=== PATIENT | female | born 1965 | race Caucasian/White ===

== ENCOUNTER → 2016-11-02 | Outpatient (CLI) | payer BC ==
[2016-11-02 09:03] LABS: EKG EKG PERFORMED
[2016-11-02 09:16] LABS: Basophils % (A) 1 %; CH 30.9; CHCM 34.2; Eosinophils # (A) 0.2 k/uL (0-0.7); Eosinophils % (A) 3 %; HCT 43.8 % (34.0-46.0); HDW 2.42; HGB 14.4 gm/dL (11.4-16.0); Luc # (Auto) 0.14; Luc % (Auto) 2; Lymphocytes # (A) 2.4 k/uL (1.0-4.8); Lymphocytes % (A) 37 %; MCH 29.9 pg (25.0-35.0); MCV 90.8 fL (80.0-100.0); Mean Platelet Volume 8.5; Monocytes # (A) 0.3 k/uL (0-1.0); Monocytes % (A) 5 %; Neutrophils # (A) 3.3 k/uL (1.3-7.7); Neutrophils % (A) 52 %; RBC 4.82 m/uL (3.80-5.40); WBC 6.4 k/uL (3.8-10.6); WBC (Perox) 6.27
[2016-11-02 09:20] LABS: Partial Thromboplastin Time 23.1 sec (22.0-30.0); Prothrombin Time 9.9 sec (9.0-12.0)
[2016-11-02 09:21] LABS: Appearance,Urine Cloudy (Clear); Bacteria,Urine Rare /hpf; Bilirubin,Urine Negative (Negative); Calcium Oxalate Crystals,Urine Moderate /hpf; Glucose,Urine (UA) Negative (Negative); Ketones,Urine Negative (Negative); Leukocyte Esterase,Urine Negative (Negative); Mucus,Urine Moderate /hpf; Nitrite,Urine Negative (Negative); PH, Urine 5.5 (5.0-8.0); Particle Count 9966; Protein,Urine Trace (Negative); RBC,Urine 3 /hpf (0-5); Specific Gravity,Urine 1.025 (1.001-1.035); Squamous Epithelial Cell,Urine 5 /hpf (0-4); UA Billing (MACRO vs. MICRO) MICRO; WBC,Urine 1 /hpf (0-5)
--- NOTE | 2016-11-02 09:21 | XR ---
EXAMINATION TYPE: XR chest 2V DATE OF EXAM: 11/02/2016 COMPARISON: NONE HISTORY: Back surgery. Pain. TECHNIQUE: Frontal and lateral views of the chest are obtained. FINDINGS: There is no focal air space opacity, pleural effusion, or pneumothorax seen. The cardiac silhouette size is within normal limits. The osseous structures are intact. IMPRESSION: No acute cardiopulmonary process.
[2016-11-02 09:50] LABS: Anion Gap 9 mmol/L; Blood Urea Nitrogen 13 mg/dL (7-17); Calcium 9.7 mg/dL (8.4-10.2); Carbon Dioxide 28 mmol/L (22-30); Chloride 105 mmol/L (98-107); Glucose 85 mg/dL (74-99); Non-African American GFR(MDRD) >60 (>60 ml/min/1.73 sqM); Potassium 4.2 mmol/L (3.5-5.1); Sodium 142 mmol/L (137-145)
== END | disposition home or self-care (01) ==
LOC: LABWHC1 08:34
PROVIDERS: ATTEND Orthopaedic Surgery Orthopaedic Surgery of the Spine
DX: Z01.818 Encounter for other preprocedural examination (principal)
CPT/HCPCS: 36415; 71020; 80048; 81001; 85025; 85610; 85730; 93005

== ENCOUNTER → 2016-11-10 | Outpatient (CLI) | payer BC ==
[2016-11-10 11:02] LABS: Appearance,Urine Cloudy (Clear); Bilirubin,Urine Negative (Negative); Glucose,Urine (UA) Negative (Negative); Ketones,Urine Negative (Negative); Leukocyte Esterase,Urine Negative (Negative); Mucus,Urine Rare /hpf; Nitrite,Urine Negative (Negative); PH, Urine 5.5 (5.0-8.0); Particle Count 1144; Protein,Urine Negative (Negative); Specific Gravity,Urine 1.004 (1.001-1.035); Squamous Epithelial Cell,Urine 1 /hpf (0-4); UA Billing (MACRO vs. MICRO) MICRO; Urobilinogen,Urine <2.0 mg/dL (<2.0); WBC,Urine <1 /hpf (0-5)
== END | disposition home or self-care (01) ==
LOC: LABWHC1 08:03
PROVIDERS: ATTEND Orthopaedic Surgery Orthopaedic Surgery of the Spine
DX: N39.0 Urinary tract infection, site not specified (principal)
CPT/HCPCS: 81001

== ENCOUNTER 2017-09-24 09:03 | Day surgery (SDC) | payer MEDICAID ==
[2017-08-27 10:33] VITALS: BMI 22.3
[~2017-09-24 09:03] MED LIST: LACTATED RINGERS 1,000 ML IV SCH
[2017-09-24 09:29] VITALS: TEMP 98
[2017-09-24] MEDS ORDERED: LIDOCAINE 1% 20 ML VIAL (10MG/ML) FOR IV START INTRADERMA ONE (09:29)
[2017-09-24] MEDS ORDERED: LIDOCAINE 1% INJ 10MG/ML (20 ML MDV) ONE (09:41)
[2017-09-24] MEDS ORDERED: PROPOFOL 10 MG/ML 20 ML VIAL IV ONE (09:41)
--- NOTE | 2017-09-24 10:03 | P.PCN ---
Date of Procedure: 09/24/17 Procedure(s) Performed: BRIEF HISTORY: Patient is a 52-year-old, pleasant, white female, scheduled for an upper endoscopy as a part of evaluation of long-standing history of GERD and chronic cough for the last several years duration. Her symptoms have been progressively getting worse for the last 9 months. She has been on Protonix 40 mg daily to help and recently was increased to 40 mg twice daily and still remains symptomatic. She is hence scheduled for an upper endoscopy to evaluate further. PROCEDURE PERFORMED: Esophagogastroduodenoscopy with biopsy PREOPERATIVE DIAGNOSIS: GERD and chronic cough of several years duration IV sedation per anesthesia. PROCEDURE: After informed consent was obtained, the patient was brought into the endoscopy unit. IV sedation was administered by Anesthesia under continuous monitoring. Initially the Olympus GIF-140 video endoscope was inserted into the mouth. Esophagus intubated without any difficulty. It was gradually advanced into the stomach and duodenum and carefully examined. The bulb and the second part of the duodenum appeared normal. The scope at this time was withdrawn to the stomach, adequately insufflated with air, and upon careful examination, mucosa of the antrum, had mild patchy areas of erythema and biopsies were done from this area. The body, cardia and the fundus appeared normal. The scope was then withdrawn into the esophagus. months. Head hernia notedThe GE junction was located at 39 cm from the incisors. The esophagus appeared normal. biopsies were done from the distal esophagus.There were no erosions or ulcerations seen and the patient tolerated the procedure well. IMPRESSION: 1. Small sliding-type hiatal hernia but no evidence of esophagitis or peptic ulcer disease 2. Mild antral gastritis. RECOMMENDATIONS: The findings of this examination were discussed with the patient as well as her family. She was advised to continue 40 mg of Protonix twice daily and follow antireflux measures. In the meantime we'll await the biopsy results and she'll be seen in the office in 6 weeks.
[2017-09-24 10:21] VITALS: BP 113/78; PULSE 78; RESP 18
== END 2017-09-24 10:42 | disposition home or self-care (01) ==
LOC: ORWHC2ENDO 09:03
PROVIDERS: ATTEND Internal Medicine Gastroenterology
DX: K29.50 Unspecified chronic gastritis without bleeding (principal); K21.0 Gastro-esophageal reflux disease with esophagitis; K44.9 Diaphragmatic hernia without obstruction or gangrene; Z88.2 Allergy status to sulfonamides; Z79.82 Long term (current) use of aspirin; Z79.899 Other long term (current) drug therapy
CPT/HCPCS: 88305; 43239; J2001; J2704

== ENCOUNTER → 2018-01-11 | Outpatient (CLI) | payer MEDICAID ==
--- NOTE | 2018-01-11 09:45 | CT ---
EXAMINATION TYPE: CT chest w con DATE OF EXAM: 01/11/2018 COMPARISON: Chest x-ray November 02, 2016 HISTORY: Cough CT DLP: 147.80 mGycm. Automated Exposure Control for Dose Reduction was Utilized. TECHNIQUE: CT scan of the thorax is performed following with IV Contrast, patient injected with 100 ml mL of Isovue 300. FINDINGS: LUNGS: Some respiratory motion artifact degradation is seen limiting evaluation for subcentimeter nod ularity especially in the bases. No obvious parenchymal nodules or masses are identified. No suspicio us consolidation or focal groundglass opacity is seen. No pleural effusion or pneumothorax is noted. Tracheobronchial tree is patent. MEDIASTINUM: There are no greater than 1 cm hilar or mediastinal lymph nodes. No cardiomegaly or pe ricardial effusion is seen. There is 4 vessel origin from aortic arch which is normal variant. OTHER: No additional significant abnormality is seen. IMPRESSION: No significant acute or chronic pulmonary process.
== END | disposition home or self-care (01) ==
LOC: RADCTMAIN 08:55
PROVIDERS: ATTEND Internal Medicine Critical Care Medicine
DX: R05 Cough (principal); Z88.2 Allergy status to sulfonamides
CPT/HCPCS: 71260; Q9967

== ENCOUNTER → 2018-04-13 | Outpatient (CLI) | payer MEDICAID ==
--- NOTE | 2018-04-14 11:03 | MM ---
Reason for exam: screening (asymptomatic). Last mammogram was performed 2 years and 6 months ago. History: Patient had first child at age 37. Family history of breast cancer in aunt at age 60. Physical Findings: A clinical breast exam by your physician is recommended on an annual basis and results should be correlated with mammographic findings. MG Screening Mammo w CAD Bilateral CC and MLO view(s) were taken. XCCL view(s) were taken of the right breast. Prior study comparison: September 30, 2015, bilateral MG screening mammo w CAD. November 27, 2013, bilateral MG screening mammo w CAD. The breast tissue is heterogeneously dense. This may lower the sensitivity of mammography. No significant changes when compared with prior studies. ASSESSMENT: Benign, BI-RAD 2 RECOMMENDATION: Routine screening mammogram of both breasts in 1 year.
== END | disposition home or self-care (01) ==
LOC: RADMAMWWP 14:50
PROVIDERS: ATTEND Family Medicine
DX: Z12.31 Encounter for screening mammogram for malignant neoplasm of breast (principal)
CPT/HCPCS: 77067

== ENCOUNTER 2019-01-11 12:52 | Day surgery (SDC) | payer MEDICAID ==
[2019-01-09 15:08] VITALS: BMI 24.0
[~2019-01-11 12:52] MED LIST changes: +ALBUTEROL NEB (CONC) 2.5 MG/0.5 ML INHALATION ONE; -LACTATED RINGERS 1,000 ML IV SCH; +LIDOCAINE 2% (PF) 20 MG/ML 5 ML VIAL INHALATION ONE; +LIDOCAINE VISCOUS 300 MG/15 ML CUP MUCOUS MEM ONE; +SODIUM CHLORIDE 0.9% 1,000 ML IV SCH
[2019-01-11 13:34] VITALS: RESP 16; TEMP 97.9
[2019-01-11] MEDS ORDERED: LACTATED RINGERS 1,000 ML IV ONE (13:39)
[2019-01-11] MEDS ORDERED: MIDAZOLAM 2 MG/2 ML VIAL ONE (14:50)
[2019-01-11] MEDS ORDERED: PROPOFOL 10 MG/ML 20 ML VIAL IV ONE (14:50)
[2019-01-11] MEDS ORDERED: KETAMINE 10 MG/ML 20 ML VIAL ONE (14:50)
[2019-01-11] MEDS ORDERED: GLYCOPYRROLATE 0.2 MG/ML 2 ML VIAL ONE (14:50)
[2019-01-11] MEDS ORDERED: LIDOCAINE 2% INJ 20 MG/ML INTRATRACH ONE (15:00)
--- NOTE | 2019-01-11 15:11 | P.PCN ---
Date of Procedure: 01/11/19 Preoperative Diagnosis: Chronic cough Postoperative Diagnosis: Chronic cough Procedure(s) Performed: Flexible bronchoscopy, BAL of the right middle lobe Anesthesia: MAC Surgeon: Jorge Carlos Estimated Blood Loss (ml): 0 Pathology: other Condition: stable Disposition: same day Operative Findings: This is a 54-year-old female patient was undergoing the flexible bronchoscopy for further evaluation of an unexplained cough. This procedure was done under conscious sedation. Anesthetic agents was administered by anesthesia the bedside. After receiving adequate sedation, the flexible bronchoscope was inserted into the left nostril and was advanced into the upper airway. Ex amination of the posterior oropharynx, larynx, epiglottis, arytenoids to the vocal cords was done and all of the structures were within normal limits without any acute abnormalities noted. Attributes was sharp and within normal and nonswollen. The cords were symmetrical. Arytenoids were normal limits. The true and the false vocal cords were also within normal limits and there was no evidence of any polyps or lesions and the vocal cord mobility and function was also within normal limits. A total of 2 mL of 1% lidocaine was applied to the vocal cords and following that the bronchoscope was advanced into the upper airway and examination tracheal bronchial tree was done. The visualized airways into the trachea, bilateral mainstem bronchi, right upper lobe bronchus, right middle lobe bronchus, bronchus intermedius, right lower lobe bronchussegments and subsegments. Examination of the left; left main stem bronchus. Left upper lobe bronchus and chronic bronchitis along with various segments and subsegments. All of these airways were also within normal limits. At this point, the bronchoscope was wedged into the medial segment of the right middle lobe and the bronchioloalveolar lavage was done. A total of 60 mL of fluid was infused and 30 mL of aspirate was obtained. Aspirate was foamy and turbid and nonbloody. The underlying mucosa from the bronchial airways were also ins pected. There was some limited areas of inflammatory changes throughout the airway and the mucosa was becoming easily irritated and hemorrhagic upon minor trauma induced by the flexible bronchoscope. The patient didn't cough during the procedure and this was limited, which did not affect our oxygenation. The procedure was completed. Therapeutic airway suctioning was done. Bronchoscope was removed. The samples will be taken for microbial analysis. Further recommendations are to follow. Recommend a methacholine challenge test. Recommended ALLERGY workup including total IgE and RAST IgE antibodies for various inhalational agents.
[2019-01-11 15:39] VITALS: BP 112/76; PULSE 96
[2019-01-12 20:23] LABS: Appearance,BF Hazy; Color,BF Colorless; Nucleated Cells, Body Fluid 4 /uL; RBC, Body Fluid 40 /uL
== END 2019-01-11 16:14 | disposition home or self-care (01) ==
LOC: ORWHC2ENDO 12:52
PROVIDERS: ATTEND Internal Medicine Critical Care Medicine
DX: J42 Unspecified chronic bronchitis (principal); K21.9 Gastro-esophageal reflux disease without esophagitis; I47.1 Supraventricular tachycardia; Z79.82 Long term (current) use of aspirin; Z79.899 Other long term (current) drug therapy; Z88.2 Allergy status to sulfonamides
CPT/HCPCS: 94640; 81025; 88108; 88305; 31624; J2001 ×2; J2250; J2704; 87070; 87102; 87116; 87205; 87206; 87252; 87496; 87498; 87502; 87529; 87634; 87798; 89050

== ENCOUNTER 2019-06-19 18:15 | Emergency (ER) | payer MEDICAID ==
[2019-06-19 18:30] VITALS: PULSE 77
[2019-06-19] MEDS ORDERED: ONDANSETRON 4 MG/2 ML VIAL IVP STA (18:45)
[2019-06-19] MEDS ORDERED: MORPHINE SULFATE 4 MG/ML SYRINGE IV STA (18:45)
[2019-06-19] MEDS ORDERED: SODIUM CHLORIDE 0.9% 1,000 ML IV STA (18:45)
[2019-06-19 18:56] LABS: Basophils % (A) 0 %; Eosinophils # (A) 0.1 k/uL (0-0.7); Eosinophils % (A) 1 %; HCT 46.2 % (34.0-46.0); HGB 15.5 gm/dL (11.4-16.0); Lymphocytes % (A) 13 %; MCH 28.9 pg (25.0-35.0); MCHC 33.5 g/dL (31.0-37.0); MCV 86.3 fL (80.0-100.0); Mean Platelet Volume 8.6; Monocytes # (A) 0.6 k/uL (0-1.0); Monocytes % (A) 4 %; Neutrophils # (A) 13.1 k/uL (1.3-7.7); Neutrophils % (A) 82 %; Platelet Count 344 k/uL (150-450); RBC 5.35 m/uL (3.80-5.40); RDW 12.2 % (11.5-15.5)
--- NOTE | 2019-06-19 19:00 | ED ---
General Adult HPI - General Source: patient, family, RN notes reviewed, old records reviewed Mode of arrival: ambulatory Limitations: no limitations <Tono Hussein - Last Filed: 06/19/19 21:21> <Maribeth Richmond - Last Filed: 06/24/19 13:00> - General Chief complaint: Abdominal Pain Stated complaint: Abd Pain Time Seen by Provider: 06/19/19 18:33 - History of Present Illness Initial comments: 54-year-old female patient with no pertinent past medical history parents ED for evaluation of right lower quadrant abdominal pain. Patient reports that the pain began approximately 2 PM today. She reports that the pain does radiate down her right anterior leg as well. States that she has been having nausea and vomiting. Denies any other complaints at this time. Systemic: Pt denies fatigue, fever/chills, rash. Pt denies weakness, night sweats, weight loss. Neuro: Pt denies headache, visual disturbances, syncope or pre-syncope. HEENT: Pt denies ocular discharge or irritation, otalgia, rhinorrhea, pharyngitis or notable lymphadenopathy. Cardiopulmonary: Pt denies chest pain, SOB, heart palpitations, dyspnea on exertion. : Pt denies dysuria, burning w/ urination, frequency/urgency. Denies new onset urinary or bowel incontinence. MSK: Pt denies myalgia, loss of strength or function in extremities. Neuro: Pt denies new onset weakness, paresthesias. (Tono Hussein) - Related Data Home Medications Medication Instructions Recorded Confirmed Aspirin [Adult Low Dose Aspirin EC] 81 mg PO DAILY 02/12/17 01/09/19 Multivitamins, Thera [Multivitamin 1 tab PO DAILY 02/12/17 01/09/19 (formulary)] Pantoprazole Sodium [Protonix] 20 mg PO QAM 08/27/17 01/11/19 amLODIPine BESYLATE [Norvasc] 5 mg PO QAM 08/27/17 01/11/19 Allergies Allergy/AdvReac Type Severity Reaction Status Date / Time sulfamethoxazole Allergy Rash/Hives Verified 01/11/19 14:02 [From Bactrim] trimethoprim [From Bactrim] Allergy Rash/Hives Verified 01/11/19 14:02 Review of Systems ROS Other: All systems not noted in ROS Statement are negative. <Tono Hussein - Last Filed: 06/19/19 21:21> ROS Other: All systems not noted in ROS Statement are negative. <Maribeth Richmond - Last Filed: 06/24/19 13:00> ROS Statement: Those systems with pertinent positive or pertinent negative responses have been documented in the HPI. Past Medical History Past Medical History: GERD/Reflux, Hypertension, Supraventricular Tachycardia (SVT) Additional Past Medical History / Comment(s): HX SVT., CHRONIC DRY COUGH. History of Any Multi-Drug Resistant Organisms: None Reported Past Surgical History: Back Surgery, Uterine Ablation Additional Past Surgical History / Comment(s): LAMINECTOMY/DISCECTOMY Past Anesthesia/Blood Transfusion Reactions: No Reported Reaction Past Psychological History: No Psychological Hx Reported Smoking Status: Never smoker Past Alcohol Use History: Occasional Past Drug Use History: None Reported - Past Family History Mother Family Medical History: No Reported History <Tono Hussein - Last Filed: 06/19/19 21:21> General Exam Limitations: no limitations <Tono Hussein - Last Filed: 06/19/19 21:21> - General Exam Comments Initial Comments: Constitutional: NAD, AOX3, Pt has pleasant affect. HEENT: NC/AT, trachea midline, neck supple, no lymphadenopathy. Posterior pharynx non erythematous, without exudates. External ears appear normal, without discharge. Mucous membranes moist. Eyes PERRLA, EOM intact. There is no scleral icterus. No pallor noted. Cardiopulmonary: RRR, no murmurs, rubs or gallops, no JVD noted. Lungs CTAB in anterior and posterior henry. No peripheral edema. Abdominal exam: Abdomen soft and non-distended. Abdomen very mildly tender right lower quadrant adnexal region.. Bowel sounds active in LLQ. No hepatosplenomegaly. No ecchymosis Neuro: CN II-XII grossly intact. No nuchal rigidity. No raccon eyes, no cornell sign, no hemotympanum. No cervical spinal tenderness. MSK: Full active ROM in upper and lower extremities, 5/5 stregnth. (Tono Hussein) Course Vital Signs 06/19/19 06/19/19 18:26 20:53 Temperature 98.1 F 98.0 F Pulse Rate 77 77 Respiratory 18 17 Rate Blood Pressure 169/100 128/80 O2 Sat by Pulse 95 99 Oximetry Medical Decision Making - Lab Data Result diagrams: 06/19/19 18:45 06/19/19 18:45 <Tono Hussein - Last Filed: 06/19/19 21:21> - Lab Data Result diagrams: 06/19/19 18:45 06/19/19 18:45 <Maribeth Richmond - Last Filed: 06/24/19 13:00> - Medical Decision Making 54-year-old female patient with no pertinent past medical history parents ED for evaluation of right lower quadrant abdominal pain. Patient reports that the pain began approximately 2 PM today. She reports that the pain does radiate down her right anterior leg as well. States that she has been having nausea and vomiting. Denies any other complaints at this time. Patient no signs are stable, afebrile. Physical exam displayed very mild tenderness to right lower quadrant/right adnexal region. Laboratory investigations revealed a leukocytosis of 16.0. Mild patient lactic acid of 2.2. UA displayed + ketones. HCG is negative. CT abdomen and pelvis was performed. This did display a complex adnexal attenuation within the pelvis on the right. Transvaginal ultrasound was obtained which displayed a complex cyst with posterior enhancement involving the wall of the uterine fundus to be a hemorrhagic cyst. No evidence of torsion and no suspicious adnexal mass. Patient denies any concern for STI or infections. Patient pain is improved. Patient will be discharged with outpatient follow with [facility] and primary care provider follow- up tomorrow. Return to ER if condition worsens. Case discussed and pt seen by Dr. Richmond. (Tono Hussein) I was available for consultation in the emergency department. The history and physical exam were done by the midlevel provider. I was consulted for this patients care. I reviewed the case with the midlevel provider and based on their presentation of the patient, I agree with the assessment, medical decision making and plan of care as documented. I evaluated the patient myself. Patient presents to the ED with RLQ abdominal pain which is improved after medication administration. She denies concern for STI. She denies fevers, chills or vaginal discharged. I discussed the diagnosis, differential and treatment plan. Chart was dictated using [employer] dictation software. Attempts were made to correct any dictation errors however some typographical errors may persist. Patient was seen during a national state of emergency due to the Covid-19 pandemic. (Maribeth Richmond) - Lab Data Lab Results 06/19/19 06/19/19 06/19/19 Range/Units 18:45 18:45 18:45 WBC 16.0 H (3.8-10.6) k/uL RBC 5.35 (3.80-5.40) m/uL Hgb 15.5 (11.4-16.0) gm/dL Hct 46.2 H (34.0-46.0) % MCV 86.3 (80.0-100.0) fL MCH 28.9 (25.0-35.0) pg MCHC 33.5 (31.0-37.0) g/dL RDW 12.2 (11.5-15.5) % Plt Count 344 (150-450) k/uL Neutrophils % 82 % Lymphocytes % 13 % Monocytes % 4 % Eosinophils % 1 % Basophils % 0 % Neutrophils # 13.1 H (1.3-7.7) k/uL Lymphocytes # 2.0 (1.0-4.8) k/uL Monocytes # 0.6 (0-1.0) k/uL Eosinophils # 0.1 (0-0.7) k/uL Basophils # 0.0 (0-0.2) k/uL Sodium 136 L (137-145) mmol/L Potassium 3.9 (3.5-5.1) mmol/L Chloride 101 (98-107) mmol/L Carbon Dioxide 22 (22-30) mmol/L Anion Gap 13 mmol/L BUN 13 (7-17) mg/dL Creatinine 0.76 (0.52-1.04) mg/dL Est GFR (CKD-EPI)AfAm >90 (>60 ml/min/1.73 sqM) Est GFR (CKD-EPI)NonAf >90 (>60 ml/min/1.73 sqM) Glucose 125 H (74-99) mg/dL Lactic Ac Sepsis Rflx Plasma Lactic Acid Ortiz 2.2 H* (0.7-2.0) mmol/L Calcium 10.1 (8.4-10.2) mg/dL Total Bilirubin 0.8 (0.2-1.3) mg/dL AST 30 (14-36) U/L ALT 26 (4-34) U/L Alkaline Phosphatase 68 (38-126) U/L Total Protein 8.8 H (6.3-8.2) g/dL Albumin 5.0 (3.5-5.0) g/dL Lipase 172 (23-300) U/L Urine Color Urine Appearance (Clear) Urine pH (5.0-8.0) Ur Specific [place] (1.001-1.035) Urine Protein (Negative) Urine Glucose (UA) (Negative) Urine Ketones (Negative) Urine Blood (Negative) Urine Nitrite (Negative) Urine Bilirubin (Negative) Urine Urobilinogen (<2.0) mg/dL Ur Leukocyte Esterase (Negative) Urine HCG, Qual (Not Detectd) 06/19/19 06/19/19 06/19/19 Range/Units 19:09 19:16 19:57 WBC (3.8-10.6) k/uL RBC (3.80-5.40) m/uL Hgb (11.4-16.0) gm/dL Hct (34.0-46.0) % MCV (80.0-100.0) fL MCH (25.0-35.0) pg MCHC (31.0-37.0) g/dL RDW (11.5-15.5) % Plt Count (150-450) k/uL Neutrophils % % Lymphocytes % % Monocytes % % Eosinophils % % Basophils % % Neutrophils # (1.3-7.7) k/uL Lymphocytes # (1.0-4.8) k/uL Monocytes # (0-1.0) k/uL Eosinophils # (0-0.7) k/uL Basophils # (0-0.2) k/uL Sodium (137-145) mmol/L Potassium (3.5-5.1) mmol/L Chloride (98-107) mmol/L Carbon Dioxide (22-30) mmol/L Anion Gap mmol/L BUN (7-17) mg/dL Creatinine (0.52-1.04) mg/dL Est GFR (CKD-EPI)AfAm (>60 ml/min/1.73 sqM) Est GFR (CKD-EPI)NonAf (>60 ml/min/1.73 sqM) Glucose (74-99) mg/dL Lactic Ac Sepsis Rflx Y Plasma Lactic Acid Ortiz (0.7-2.0) mmol/L Calcium (8.4-10.2) mg/dL Total Bilirubin (0.2-1.3) mg/dL AST (14-36) U/L ALT (4-34) U/L Alkaline Phosphatase (38-126) U/L Total Protein (6.3-8.2) g/dL Albumin (3.5-5.0) g/dL Lipase (23-300) U/L Urine Color Light Yellow Urine Appearance Clear (Clear) Urine pH 7.0 (5.0-8.0) Ur Specific [place] 1.036 H (1.001-1.035) Urine Protein Negative (Negative) Urine Glucose (UA) Negative (Negative) Urine Ketones 1+ H (Negative) Urine Blood Negative (Negative) Urine Nitrite Negative (Negative) Urine Bilirubin Negative (Negative) Urine Urobilinogen <2.0 (<2.0) mg/dL Ur Leukocyte Esterase Negative (Negative) Urine HCG, Qual Not Detected (Not Detectd) Disposition Is patient prescribed a controlled substance at d/c from ED?: No <Tono Hussein - Last Filed: 06/19/19 21:21> <Maribeth Richmond - Last Filed: 06/24/19 13:00> Clinical Impression: Uterine cyst Disposition: HOME SELF-CARE Condition: Stable Instructions (If sedation given, give patient instructions): Pelvic Pain in Women (ED), Cyst (ED) Additional Instructions: Follow-up with both primary care provider as well as [facility] tomorrow. Return to ER if condition worsens in any way. Referrals: Rashi Mo MD [Primary Care Provider] - 1-2 days Crissy Serna MD [STAFF PHYSICIAN] - 1-2 days
[2019-06-19 19:04] LABS: ALT 26 U/L (4-34); AST 30 U/L (14-36); African American GFR (CKD) >90 (>60 ml/min/1.73 sqM); Alkaline Phosphatase 68 U/L (38-126); Anion Gap 13 mmol/L; Blood Urea Nitrogen 13 mg/dL (7-17); Calcium 10.1 mg/dL (8.4-10.2); Carbon Dioxide 22 mmol/L (22-30); Chloride 101 mmol/L (98-107); Glucose 125 mg/dL (74-99); Non-African American GFR(CKD) >90 (>60 ml/min/1.73 sqM); Potassium 3.9 mmol/L (3.5-5.1); Sodium 136 mmol/L (137-145); Total Bilirubin 0.8 mg/dL (0.2-1.3); Total Protein 8.8 g/dL (6.3-8.2)
--- NOTE | 2019-06-19 19:29 | CT ---
EXAMINATION TYPE: CT abdomen pelvis w con DATE OF EXAM: 06/19/2019 COMPARISON: HISTORY: Right lower quadrant abdominal pain and vomiting. CT DLP: 733.7 mGycm Automated exposure control for dose reduction was used. CONTRAST: CT scan of the abdomen pelvis is performed with IV Contrast, patient injected with 100ml mL of Isovue 300. FINDINGS- LUNG BASES- No significant abnormality is appreciated. LIVER/GB- No gross abnormality is appreciated. PANCREAS- No gross abnormality is seen. SPLEEN- No gross abnormality is seen. ADRENALS- No gross abnormality is seen. KIDNEYS/BLADDER- no hydronephrosis, nephrolithiasis or renal mass. BOWEL- no bowel dilatation. Normal appendix. LYMPH NODES- No greater than 1cm abdominal or pelvic lymph nodes areappreciated. OSSEOUS STRUCTURES-hypertrophic and degenerative change of the spine. OTHER- aorta of normal caliber. Within the pelvis has complex attenuation in the region of the uteri ne body body and adnexa. Pelvic mass in the differential diagnosis. Recommend ultrasound. Additional nabothian cyst suspected. Small fat-containing. Umbilical hernia. Trace amount of free fluid in the p parmjit. IMPRESSION- 1. Complex mixed attenuation mass within the pelvis on the right. Possibly related to dilated endomet rium, PID, ectopic or adnexal mass. Recommend pelvic ultrasound.
[2019-06-19 19:33] LABS: Appearance,Urine Clear (Clear); Bilirubin,Urine Negative (Negative); Blood,Urine Negative (Negative); Color,Urine Light Yellow; Glucose,Urine (UA) Negative (Negative); Ketones,Urine 1+ (Negative); Leukocyte Esterase,Urine Negative (Negative); Nitrite,Urine Negative (Negative); Protein,Urine Negative (Negative); Specific Gravity,Urine 1.036 (1.001-1.035); Urobilinogen,Urine <2.0 mg/dL (<2.0)
--- NOTE | 2019-06-19 20:38 | US ---
EXAMINATION TYPE: US transvaginal DATE OF EXAM: 06/19/2019 COMPARISON: CT CLINICAL HISTORY: right adnexal mass. RLQ pain x 6.5 hours. Hx uterine ablation. Hx miscarriage. G2 P 1. TECHNIQUE: Transvaginal (TV). Date of LMP: Unknown. EXAM MEASUREMENTS: Uterus: 8.0 x 5.0 x 5.4 cm Endometrial Stripe: Not well seen. Area seen in right adnexa, possible right ovary. Area measures: 3.7 x 1.6 x 1.8 cm. Left Ovary: 2.7 x 1.4 x 1.2 cm 1. Uterus: Retroverted/oblique. Appears heterogeneous. Hyperechoic areas seen near fundus measuring: #1: 2.6 x 2.5 x 2.3 cm. This area also has an anechoic component. #2 measures: 1.7 x 2.0 x 1.2 cm. Anechoic area seen in cervix: 1.0 x 1.2 x 1.3 cm. 2. Endometrium: Not well seen. 3. Right Ovary: Area seen in the right adnexa that could resemble the right ovary? This area measure s: 3.7 x 1.6 x 1.8 cm. Limited. Shadowing is seen in this area. 4. Left Ovary: Appears to be wnl. Spectral, color and waveform doppler imaging shows good arterial flow within the ovaries. Venous wa veforms are limited possibly due to depth. Venous waveforms not well seen. 5. Bilateral Adnexa: Area within right adnexa as mentioned above measures: 3.7 x 1.6 x 1.8 cm. 6. Posterior cul-de-sac: Appears to be wnl. IMPRESSION: There is a complex cyst with posterior enhancement involving the wall of the uterine fundus that coul d be a hemorrhagic cyst. There is a cervical cyst. No evidence of ovarian torsion. No suspicious adne xal mass.
[2019-06-19 20:53] VITALS: BP 128/80; RESP 17; TEMP 98
[2019-06-19] MEDS ORDERED: ACET/COD 300 MG/30 MG STARTER PACK 6 TAB BTL PO STA (21:23)
== END 2019-06-19 21:32 | disposition home or self-care (01) ==
LOC: EC 18:15
DX: N85.8 Other specified noninflammatory disorders of uterus (principal); Z32.02 Encounter for pregnancy test, result negative; D72.829 Elevated white blood cell count, unspecified; I10 Essential (primary) hypertension; K21.9 Gastro-esophageal reflux disease without esophagitis; Z79.82 Long term (current) use of aspirin; Z88.1 Allergy status to other antibiotic agents; Z88.2 Allergy status to sulfonamides
CPT/HCPCS: 36415; 80053; 83605; 83690; 85025; 81003; 81025; 93975; 76830; 74177; 99284; 96374; 96375; 96361; J2270; J2405; Q9967

== ENCOUNTER → 2019-08-04 | Outpatient (CLI) | payer MEDICAID ==
[2019-08-04 10:56] LABS: Basophils % (A) 1 %; Eosinophils # (A) 0.2 k/uL (0-0.7); Eosinophils % (A) 2 %; HCT 42.7 % (34.0-46.0); HGB 14.6 gm/dL (11.4-16.0); Lymphocytes # (A) 2.3 k/uL (1.0-4.8); Lymphocytes % (A) 32 %; MCH 30.4 pg (25.0-35.0); MCHC 34.2 g/dL (31.0-37.0); MCV 88.7 fL (80.0-100.0); Mean Platelet Volume 8.8; Monocytes # (A) 0.4 k/uL (0-1.0); Monocytes % (A) 6 %; Neutrophils # (A) 4.1 k/uL (1.3-7.7); Neutrophils % (A) 57 %; Platelet Count 278 k/uL (150-450); RBC 4.81 m/uL (3.80-5.40); RDW 12.5 % (11.5-15.5); WBC 7.2 k/uL (3.8-10.6)
[2019-08-04 11:29] LABS: African American GFR (CKD) >90 (>60 ml/min/1.73 sqM); Anion Gap 5 mmol/L; Blood Urea Nitrogen 14 mg/dL (7-17); Carbon Dioxide 28 mmol/L (22-30); Chloride 103 mmol/L (98-107); Glucose 94 mg/dL (74-99); Non-African American GFR(CKD) 82 (>60 ml/min/1.73 sqM); Potassium 4.3 mmol/L (3.5-5.1); Sodium 136 mmol/L (137-145)
== END | disposition home or self-care (01) ==
LOC: LABPAT 10:13
PROVIDERS: ATTEND Obstetrics & Gynecology
DX: Z01.818 Encounter for other preprocedural examination (principal); I20.0 Unstable angina; N80.0 Endometriosis of uterus; R10.2 Pelvic and perineal pain
CPT/HCPCS: 36415; 80051; 82565; 82947; 84520; 85025; 87086; 93005

== ENCOUNTER → 2019-08-09 | Outpatient (CLI) | payer MEDICAID | END | disposition home or self-care (01) | LOC: LABWHC1 12:04 | PROVIDERS: ATTEND Obstetrics & Gynecology | DX: Z11.59 Encounter for screening for other viral diseases (principal) ==

== ENCOUNTER 2019-08-14 09:19 | Day surgery (SDC) | payer MEDICAID ==
[2019-08-10 11:31] VITALS: BMI 24.3
[~2019-08-14 09:19] MED LIST changes: -ALBUTEROL NEB (CONC) 2.5 MG/0.5 ML INHALATION ONE; +DEXAMETHASONE SOD PHOSPHATE 10 MG/ML 1 ML VIAL IV ONE; +HYDROmorphone 0.5 MG/0.5 ML SYRINGE IVP PRN; +LACTATED RINGERS 1,000 ML IV SCH; +LIDOCAINE 1% (10MG/ML) FOR IV START INTRADERMA PRN; -LIDOCAINE 2% (PF) 20 MG/ML 5 ML VIAL INHALATION ONE; -LIDOCAINE VISCOUS 300 MG/15 ML CUP MUCOUS MEM ONE; +ONDANSETRON 4 MG/2 ML VIAL IVP ONE; +SCOPOLAMINE 1.5MG/72HR PATCH TRANSDERM ONE; -SODIUM CHLORIDE 0.9% 1,000 ML IV SCH
[2019-08-14] MEDS ORDERED: VASOPRESSIN 20 UNIT/ML 1 ML VIAL IM ONE (11:14)
[2019-08-14] MEDS ORDERED: PHENYLEPHRINE-0.9% NACL SYG 1 MG/10 ML SYRINGE ONE (11:30)
[2019-08-14] MEDS ORDERED: diphenhydrAMINE 50 MG/ML 1 ML VIAL ONE (11:30)
[2019-08-14] MEDS ORDERED: fentaNYL (PF) 50 MCG/ML 2 ML AMP ONE (11:30)
[2019-08-14] MEDS ORDERED: PROPOFOL 10 MG/ML 20 ML VIAL IV ONE (11:30)
[2019-08-14] MEDS ORDERED: MIDAZOLAM 2 MG/2 ML VIAL ONE (11:30)
[2019-08-14] MEDS ORDERED: NALOXONE 0.4 MG/ML 1 ML VIAL IV PRN (11:53)
[2019-08-14] MEDS ORDERED: MORPHINE SULFATE 2 MG/ML SYRINGE IVP PRN (11:53)
[2019-08-14] MEDS ORDERED: diphenhydrAMINE 50 MG/ML 1 ML VIAL IVP PRN ×2 (11:53→12:40)
[2019-08-14] MEDS ORDERED: VASOPRESSIN 20 UNIT/ML 1 ML VIAL SQ ONE (11:54)
[2019-08-14] MEDS ORDERED: BACITRACIN 500 UNIT/GM OINT 28.4 GM TUBE TOPICAL ONE ×2 (12:03→12:26)
[2019-08-14] MEDS ORDERED: METOCLOPRAMIDE 5 MG/ML 2 ML VIAL IVP PRN (12:40)
[2019-08-14] MEDS ORDERED: KETOROLAC 30 MG/ML 1 ML VIAL IVP PRN (12:40)
[2019-08-14] MEDS ORDERED: SIMETHICONE 80 MG CHEWABLE PO PRN (12:40)
[2019-08-14] MEDS ORDERED: ONDANSETRON 4 MG/2 ML VIAL IVP PRN (12:40)
--- NOTE | 2019-08-14 12:40 | P.OP ---
Date of Procedure: 08/14/19 Preoperative Diagnosis: Severe cyclic pelvic pain, suspect adenomyosis Postoperative Diagnosis: Normal-appearing ovaries bilaterally Procedure(s) Performed: Vaginal hysterectomy Anesthesia: spinal Surgeon: Crissy Serna Material Hauler #1: Oliver Palacios Estimated Blood Loss (ml): 25 IV fluids (ml): 400 Urine output (ml): 100 Pathology: other (Cervix and uterus) Condition: stable Disposition: PACU Operative Findings: Normal-appearing ovaries bilaterally, well visualized Description of Procedure: Patient is brought to the operating suite where a spinal with Duramorph is given without difficulty. She's placed in the dorsal lithotomy position. The cervix, vagina, perineal bodies are all prepped and draped in usual sterile fashion. Antibiotics are given. Urine hCG is negative. The appropriate timeout is performed to assure proper patient and procedural identification. The bladder was drained for approximately 100 mL of clear yellow urine. Weighted speculum was placed into the vagina. Anterior lip of the cervix is grasped with a double-tooth tenaculum. The cervix is injected circumferentially with a dilute Pitressin solution. A yuhaaviatam blade scalpel is used to incise the mucosa circumferentially with a V positioning at 6:00. Sponge rolled finger is used to sweep the mucosa from the underlying fascial plane. Peritoneum is entered at 6:00 and suture tied with 2- 0 Vicryl, held with a hemostat. The large billed speculum is then placed into the vagina. At all times the bladder is Well from the operative field to avoid bladder and/or ureteral injury. The right uterosacral ligament is identified, clamped cut and suture ligated, held with a hemostat. Same procedure is carried out contralaterally. Please note that 0 Vicryl sutures used for the rest of the procedure. Uterine vasculature is identified, skeletonized, clamped cut and suture ligated. 2 additional pedicles are taken superior to the vessels. Anterior peritoneum is entered at 12:00. Himanshu clamps are used around the final pedicles and the cervix and uterus are sent to pathology. The pedicles are tied with 0 Vicryl suture, flashed, and retied for excellent hemostasis. The ovaries are then visualized bilaterally utilizing a sponge stick, they both appear normal with no evidence of endometriosis, cyst formation, or any other pathology. The speculum is changed to the small billed speculum. All pedicles are securely hemostatically intact. The 2-0 Vicryl suture is brought around in a pursestring fashion to close the peritoneum. The previously placed uterosacral ligament stitches are then brought across to incorporate the opposite ligament to begin vaginal cuff closure. 3 additional [id number] sutures of 0 Vicryl suture used for final cuff closure. Ceron catheter is r eplaced and the bladder is noted to be draining clear urine. The vagina is packed with one-inch iodophor gauze. All sponge needle and enhancement counts are correct. Patient is brought back to the recovery room in excellent condition with stable vital signs including a pulse of 59, blood pressure 98/53.
[2019-08-14] MEDS ORDERED: LACTATED RINGERS 1,000 ML IV ONE (13:21)
[2019-08-14] MEDS ORDERED: ZOLPIDEM 5 MG TAB PO PRN (21:00)
--- NOTE | 2019-08-15 07:06 | P.DS ---
Providers Date of admission: 08/14/19 Attending physician: Crissy Serna Primary care physician: [facility] Course: This is a 54-year-old white female who presented with cyclic pelvic pain, status post endometrial ablation. Workup and sonogram were both consistent with a history of adenomyosis. After thorough consultation she elected to proceed with surgical palliation. Please see dictated history and physical for details. Patient underwent a vaginal hysterectomy under my care yesterday. She did well intraoperatively. The ovaries appeared normal to inspection and therefore left in situ. Ceron catheter and vaginal packing were placed. Please see my dictated operative note for details. This morning the patient is doing what very well. Ceron catheter has been removed, vaginal packing is removed as well. There is no vaginal bleeding. She is passing flatus. No CVA tenderness. Vital signs are stable and she is afebrile. Patient is judged to be in good condition for discharge home later today. She will follow-up with me in the office in 2 weeks. I have reminded her no intercourse, tampons or douching. She will use [id number] Advil or Aleve, or Motrin as needed for pain. She will call with any fevers shakes or chills, foul smelling or copious vaginal drainage, with any pain not alleviated by [id number] products. She will call with any difficulties questions or concerns. Patient Condition at Discharge: Good Plan - Discharge Summary Discharge Rx Participant: No New Discharge Prescriptions: No Action Multivitamins, Thera [Multivitamin (formulary)] 1 tab PO DAILY Aspirin [Adult Low Dose Aspirin EC] 81 mg PO DAILY Pantoprazole Sodium [Protonix] 40 mg PO QAM amLODIPine BESYLATE [Norvasc] 5 mg PO QAM Naproxen Sodium [Aleve] 220 mg PO BID PRN PRN Reason: Pain Discharge Medication List Aspirin [Adult Low Dose Aspirin EC] 81 mg PO DAILY 02/12/17 [History] Multivitamins, Thera [Multivitamin (formulary)] 1 tab PO DAILY 02/12/17 [History] Pantoprazole Sodium [Protonix] 40 mg PO QAM 08/27/17 [History] amLODIPine BESYLATE [Norvasc] 5 mg PO QAM 08/27/17 [History] Naproxen Sodium [Aleve] 220 mg PO BID PRN 08/10/19 [History] Follow up Appointment(s)/Referral(s): Crissy Serna MD [STAFF PHYSICIAN] - 2 Weeks Discharge Disposition: HOME SELF-CARE
[2019-08-15 10:22] VITALS: BP 122/76; PULSE 75; RESP 16; TEMP 97.8
[2019-08-15] MEDS ORDERED: ACETAMINOPHEN TAB 325 MG TAB PO PRN (12:41)
== END 2019-08-15 09:37 | disposition home or self-care (01) ==
LOC: OR 09:19 → 6PED 12:31 → OR 08-15 09:37
PROVIDERS: ATTEND Obstetrics & Gynecology
DX: N80.0 Endometriosis of uterus (principal); N83.201 Unspecified ovarian cyst, right side; I10 Essential (primary) hypertension; Z98.890 Other specified postprocedural states; Z82.49 Family history of ischemic heart disease and other diseases of the circulatory system; Z82.61 Family history of arthritis; I49.9 Cardiac arrhythmia, unspecified; I47.1 Supraventricular tachycardia; J45.998 Other asthma; K21.9 Gastro-esophageal reflux disease without esophagitis; Z79.1 Long term (current) use of non-steroidal anti-inflammatories (NSAID); Z79.82 Long term (current) use of aspirin; Z79.899 Other long term (current) drug therapy; Z88.2 Allergy status to sulfonamides
CPT/HCPCS: 81025; 86900; 86901; 86850; 88307; 58260; J2250; J1200; J1100; J0690; J2405; J3010; J1885; J2370; J2704

== ENCOUNTER → 2020-03-13 | Outpatient (CLI) | payer MEDICAID ==
--- NOTE | 2020-03-15 13:58 | MM ---
Reason for exam: screening (asymptomatic). Last mammogram was performed 1 year and 11 months ago. History: Patient is postmenopausal, history of other cancer, and had first child at age 37. Family history of breast cancer in aunt at age 60. Physical Findings: A clinical breast exam by your physician is recommended on an annual basis and results should be correlated with mammographic findings. MG Screening Mammo w CAD Bilateral CC, MLO, and XCCL view(s) were taken. Prior study comparison: April 13, 2018, bilateral MG screening mammo w CAD. September 30, 2015, bilateral MG screening mammo w CAD. The breast tissue is heterogeneously dense. This may lower the sensitivity of mammography. No significant changes when compared with prior studies. ASSESSMENT: Negative, BI-RAD 1 RECOMMENDATION: Routine screening mammogram of both breasts in 1 year.
== END | disposition home or self-care (01) ==
LOC: RADMAMWWP 13:56
PROVIDERS: ATTEND Family Medicine
DX: Z12.31 Encounter for screening mammogram for malignant neoplasm of breast (principal)
CPT/HCPCS: 77067

== ENCOUNTER 2020-04-11 10:04 | Day surgery (SDC) | payer MEDICAID ==
[2020-04-09 15:56] VITALS: BMI 22.3
[~2020-04-11 10:04] MED LIST changes: -DEXAMETHASONE SOD PHOSPHATE 10 MG/ML 1 ML VIAL IV ONE; -HYDROmorphone 0.5 MG/0.5 ML SYRINGE IVP PRN; -ONDANSETRON 4 MG/2 ML VIAL IVP ONE; -SCOPOLAMINE 1.5MG/72HR PATCH TRANSDERM ONE
[2020-04-11 10:31] VITALS: RESP 16; TEMP 97.8
[2020-04-11] MEDS ORDERED: PROPOFOL 10 MG/ML 20 ML VIAL IV ONE (10:46)
--- NOTE | 2020-04-11 11:04 | P.PCN ---
Date of Procedure: 04/11/20 Procedure(s) Performed: BRIEF HISTORY: Patient is a 55-year-old pleasant white female scheduled for an elective colonoscopy as a part of screening for colorectal neoplasia. PROCEDURE PERFORMED: Colonoscopy. PREOPERATIVE DIAGNOSIS: Screening for colon cancer IV sedation per Anesthesia. PROCEDURE: After informed consent was obtained, the patient, was brought into the endoscopy unit. IV sedation was administered by Anesthesia under continuous monitoring. Digital rectal examination was normal. Initially the Olympus CF-160 flexible video colonoscope was then inserted in the rectum, gradually advanced into the cecum without any difficulty. Careful examination was performed as the scope was gradually being withdrawn. Ileocecal valve and the appendiceal orifice were visualized and appeared normal. Prep was excellent. Mucosa of the cecum, ascending colon, transverse colon, descending colon, sigmoid colon, and rectum appeared normal. Retroflexion was performed in the rectum and no lesions were seen. The patient tolerated the procedure well. IMPRESSION: Normal-appearing colon from rectum to cecum with no evidence of colorectal neoplasia . RECOMMENDATIONS: Findings of this examination were discussed with the patient as well as a family. She was advised to have a repeat screening colonoscopy in 10 years..
[2020-04-11 11:26] VITALS: BP 125/80; PULSE 66
== END 2020-04-11 11:55 | disposition home or self-care (01) ==
LOC: ORWHC2ENDO 10:04
PROVIDERS: ATTEND Internal Medicine Gastroenterology
DX: Z12.11 Encounter for screening for malignant neoplasm of colon (principal); I10 Essential (primary) hypertension; J45.909 Unspecified asthma, uncomplicated; K21.9 Gastro-esophageal reflux disease without esophagitis; Z79.899 Other long term (current) drug therapy; Z88.2 Allergy status to sulfonamides; Z90.710 Acquired absence of both cervix and uterus
CPT/HCPCS: J2704; G0121

== ENCOUNTER → 2021-11-28 | Outpatient (CLI) | payer MEDICAID ==
--- NOTE | 2021-12-01 19:49 | MM ---
Reason for Exam: Screening (asymptomatic). Last mammogram was performed 1 year(s) and 8 month(s) ago. Patient History: Menarche at age 13. First Full-Term at age 37. Late child-bearing (after 30). Postmenopausal. Other cancer. Maternal aunt had breast cancer, age 60. Risk Values: Kim 5 year model risk: 1.6%. NCI Lifetime model risk: 11.2%. Prior Study Comparison: 09/30/2015 Bilateral Screening Mammogram, [facility]. 04/13/2018 Bilateral Screening Mammogram, [facility]. 03/13/2020 Bilateral Screening Mammogram, [facility]. Tissue Density: The breast tissue is heterogeneously dense. This may lower the sensitivity of mammography. Findings: Analyzed By CAD. Unchanged focal asymmetry upper-outer quadrant right breast. No significant change from prior exams. Overall Assessment: Benign, BI-RAD 2 Management: Screening Mammogram of both breasts in 1 year. 1. Patient should continue monthly self breast exams. 2. A clinical breast exam by your physician is recommended on an annual basis. 3. This exam should not preclude additional follow-up of suspicious palpable abnormalities. Electronically signed and approved by: Addis Gold M.D. Radiologist
== END | disposition home or self-care (01) ==
LOC: RADMAMWWP 16:24
PROVIDERS: ATTEND Family Medicine
DX: Z12.31 Encounter for screening mammogram for malignant neoplasm of breast (principal); Z78.0 Asymptomatic menopausal state; Z80.3 Family history of malignant neoplasm of breast; Z85.89 Personal history of malignant neoplasm of other organs and systems
CPT/HCPCS: 77063; 77067

== ENCOUNTER → 2022-01-03 | Outpatient (CLI) | payer MEDICAID ==
[2022-01-03 11:15] LABS: HCT 42.6 % (34.0-46.0); HGB 14.1 gm/dL (11.4-16.0); MCH 29.3 pg (25.0-35.0); MCHC 33.1 g/dL (31.0-37.0); MCV 88.5 fL (80.0-100.0); Mean Platelet Volume 9.2; Platelet Count 268 k/uL (150-450); RBC 4.81 m/uL (3.80-5.40); RDW 12.3 % (11.5-15.5); WBC 6.9 k/uL (3.8-10.6)
[2022-01-03 11:41] LABS: ALT 45 U/L (4-34); AST 56 U/L (14-36); African American GFR (CKD) 81 (>60 ml/min/1.73 sqM); Albumin 4.5 g/dL (3.5-5.0); Albumin/Globulin Ratio 1.4; Alkaline Phosphatase 69 U/L (38-126); Anion Gap 9 mmol/L; Blood Urea Nitrogen 16 mg/dL (7-17); Calcium 9.9 mg/dL (8.4-10.2); Carbon Dioxide 28 mmol/L (22-30); Chloride 101 mmol/L (98-107); Globulin 3.2 g/dL; Glucose 97 mg/dL (74-99); Non-African American GFR(CKD) 71 (>60 ml/min/1.73 sqM); Potassium 3.7 mmol/L (3.5-5.1); Sodium 138 mmol/L (137-145); Total Bilirubin 0.7 mg/dL (0.2-1.3); Total Protein 7.7 g/dL (6.3-8.2)
[2022-01-03 23:19] LABS: Chol/HDL Ratio 4.36 Ratio; LDL Cholesterol,Calculated 173.2 mg/dL (0.0-131.0)
== END | disposition home or self-care (01) ==
LOC: LABWHC1 10:36
PROVIDERS: ATTEND Family Medicine
DX: Z00.00 Encounter for general adult medical examination without abnormal findings (principal)
CPT/HCPCS: 36415; 80053; 80061; 85027

== ENCOUNTER → 2022-07-27 | Outpatient (CLI) | payer MEDICAID ==
--- NOTE | 2022-07-27 15:07 | CT ---
EXAMINATION TYPE: CT heart w calcium score DATE OF EXAM: 07/27/2022 COMPARISON: HISTORY: Screening for cardiovascular disorder. 213.9 CT DLP: 67.2 mGycm Automated exposure control for dose reduction was used. CT CALCIUM SCORING Coronary calcium is a marker for plaque (fatty deposits) in a blood vessel or atherosclerosis (harden ing of the arteries). The presence and amount of calcium detected in a coronary artery by the CT sca n, indicates the presence and amount of atherosclerotic plaque. These calcium deposits appear years before the development of heart disease symptoms such as chest pain and shortness of breath. A calcium score is computed for each of the coronary arteries based upon the volume and density of th e calcium deposits. This can be referred to as your calcified plaque burden. It does not correspond directly to the percentage of narrowing in the artery but does correlate with the severity of the un derlying coronary atherosclerosis. PROCEDURE TECHNIQUE - Prospective Gating was used. Slice thickness: 3mm. Density threshold (HU): 130, Pixel threshold: 3, Algorithm: discrete. RESULTS Region: LM Calcium Score ([place]at[place]): 0 Volume (mm3): 0 Mass (g): 0 Region: RCA Calcium Score ([place]): 0 Volume (mm3): 0 Mass (g): 0 Region: LAD Calcium Score ([place]): 0 Volume (mm3): 0 Mass (g): 0 Region: CX Calcium Score ([place]): 0 Volume (mm3): 0 Mass (g): 0 Region: PDA Calcium Score ([place]): 0 Volume (mm3): 0 Mass (g): 0 Total: Calcium Score ([place]at[place]): 0 Volume (mm3): 0 Mass (g): 0 TOTAL CALCIUM SCORE: 0 IMPRESSION: Calcium Score: 0 Implication: No identifiable plaque Risk of Coronary Artery Disease: Very low, generally less than 5% CALCIUM SCORE IMPLICATION RISK OF C ORONARY ARTERY DISEASE 0 No identifiable plaque Very low, generally less than 5% 1-10 Minimal identifiable plaque Very unlikely, less than 10% 11-100 Definite, at least mild atherosclerotic plaque Mild or m inimal coronary narrowings likely 101-400 Definite, at least moderate atherosclerotic plaque Mild coronary ar florencia disease highly likely, significant narrowing possible 401 or Higher Extensive atherosclerotic plaque High lik elihood of at least one significant coronary narrowing
== END | disposition home or self-care (01) ==
LOC: RADCTMAIN 14:36
PROVIDERS: ATTEND Family Medicine
DX: Z13.6 Encounter for screening for cardiovascular disorders (principal); I25.10 Atherosclerotic heart disease of native coronary artery without angina pectoris
CPT/HCPCS: 75571

== ENCOUNTER → 2023-02-08 | Outpatient (CLI) | payer MEDICAID ==
[2023-02-08 10:49] LABS: HCT 43.4 % (37.2-46.3); HGB 14.7 g/dL (12.0-15.0); MCH 29.7 pg (27.0-32.0); MCHC 33.9 g/dL (32.0-37.0); MCV 87.7 FL (80.0-97.0); Mean Platelet Volume 11.4 FL (9.5-12.2); NRBC Per 100 WBC 0 X 10*3/uL (0.00-0.01); Platelet Count 297 X 10*3/uL (140-440); RBC 4.95 X 10*6/uL (4.10-5.20); RDW 12.1 % (11.5-14.5); WBC 8.69 X 10*3/uL (4.50-10.00)
[2023-02-08 11:01] LABS: Chol/HDL Ratio 5.12 Ratio; LDL Cholesterol,Calculated 114.9 mg/dL (0.0-131.0)
[2023-02-08 11:02] LABS: ALT 25 U/L (8-44); AST 17 U/L (13-35); Albumin 4.3 g/dL (3.8-4.9); Albumin/Globulin Ratio 1.54 Ratio (1.60-3.17); Alkaline Phosphatase 49 U/L (41-126); BUN/Creat Ratio 21.88 Ratio (12.00-20.00); Blood Urea Nitrogen 17.5 mg/dL (9.0-27.0); Calcium 9.9 mg/dL (8.7-10.3); Carbon Dioxide 27.1 mmol/L (21.6-31.8); Chloride 102 mmol/L (96-109); Globulin 2.8 g/dL (1.6-3.3); Glucose 95 mg/dL (70-110); Potassium 4.4 mmol/L (3.5-5.5); Sodium 138 mmol/L (135-145); Total Bilirubin 0.3 mg/dL (0.3-1.2); Total Protein 7.1 g/dL (6.2-8.2)
== END | disposition home or self-care (01) ==
LOC: LABWHC1 07:58
PROVIDERS: ATTEND Family Medicine
DX: Z00.00 Encounter for general adult medical examination without abnormal findings (principal)
CPT/HCPCS: 36415; 80053; 80061; 85027

== ENCOUNTER → 2023-02-08 | Outpatient (CLI) | payer MEDICAID ==
--- NOTE | 2023-02-09 09:17 | MM ---
Reason for Exam: Screening (asymptomatic). Last mammogram was performed 1 year(s) and 3 month(s) ago. Patient History: Menarche at age 13. First Full-Term at age 37. Late child-bearing (after 30). Postmenopausal. Other cancer. Maternal aunt had breast cancer, age 60. Risk Values: Kim 5 year model risk: 1.7%. NCI Lifetime model risk: 10.9%. Prior Study Comparison: 04/13/2018 Bilateral Screening Mammogram, [facility]. 03/13/2020 Bilateral Screening Mammogram, [facility]. 11/28/2021 Bilateral MG 3D screening mammo w/cad, [facility]. Tissue Density: The breast tissue is heterogeneously dense. This may lower the sensitivity of mammography. Findings: Analyzed By CAD. There is no suspicious group of microcalcifications or new suspicious mass in either breast. Overall Assessment: Benign, BI-RAD 2 Management: Screening Mammogram of both breasts in 1 year. . Patient should continue monthly self-breast exams. A clinical breast exam by your physician is recommended on an annual basis. This exam should not preclude additional follow-up of suspicious palpable abnormalities. Note on Kim scores and lifetime risk: 1. A Kim score greater than 3% is considered moderate risk. If this is the case, consider specialist referral to assess eligibility for a risk reducing agent. 2. If overall lifetime risk for the development of breast cancer is 20% or higher, the patient may qualify for future screening with alternating mammogram and breast MRI. Electronically signed and approved by: Jese Zamora M.D. Radiologis
== END | disposition home or self-care (01) ==
LOC: RADMAMWWP 07:40
PROVIDERS: ATTEND Family Medicine
DX: Z12.31 Encounter for screening mammogram for malignant neoplasm of breast (principal); Z78.0 Asymptomatic menopausal state; Z80.3 Family history of malignant neoplasm of breast
CPT/HCPCS: 77063; 77067

== ENCOUNTER → 2024-03-28 | Outpatient (CLI) | payer BC ==
--- NOTE | 2024-03-28 13:57 | MM ---
Reason for Exam: Screening (asymptomatic). Last mammogram was performed 1 year(s) and 1 month(s) ago. Patient History: Menarche at age 13. First Full-Term at age 37. Late child-bearing (after 30). Postmenopausal. Maternal aunt had breast cancer, age 60. Risk Values: Kim 5 year model risk: 1.8%. NCI Lifetime model risk: 10.5%. Prior Study Comparison: 03/13/2020 Bilateral Screening Mammogram, [facility]. 11/28/2021 Bilateral MG 3D screening mammo w/cad, [facility]. 02/08/2023 Bilateral MG 3D screening mammo w/cad, [facility]. Tissue Density: There are scattered areas of fibroglandular density. Findings: Analyzed By CAD. Areas of asymmetric density on the right are unchanged. There is no suspicious group of microcalcifications or new suspicious mass in either breast. Overall Assessment: Benign, BI-RAD 2 Management: Screening Mammogram of both breasts in 1 year. Patient should continue monthly self-breast exams. A clinical breast exam by your physician is recommended on an annual basis. This exam should not preclude additional follow-up of suspicious palpable abnormalities. Note on Kim scores and lifetime risk: 1. A Kim score greater than 3% is considered moderate risk. If this is the case, consider specialist referral to assess eligibility for a risk reducing agent. 2. If overall lifetime risk for the development of breast cancer is 20% or higher, the patient may qualify for future screening with alternating mammogram and breast MRI. [facility], , 03/28/2024 1:52 PM. Electronically signed and approved by: Addis Gold M.D. Radiologist
== END | disposition home or self-care (01) ==
LOC: RADMAMWWP 09:25
PROVIDERS: ATTEND Obstetrics & Gynecology
DX: Z12.31 Encounter for screening mammogram for malignant neoplasm of breast (principal); Z78.0 Asymptomatic menopausal state; Z80.3 Family history of malignant neoplasm of breast; R92.323 Mammographic fibroglandular density, bilateral breasts
CPT/HCPCS: 77063; 77067